=== PATIENT | female | born 1935 | race Two or more races ===

== ENCOUNTER 2019-07-04 06:42 | Day surgery (SDC) | payer OTHER ==
[~2019-07-04 06:42] MED LIST: ASPIR 8181 MG PO; LOSARTAN-HCTZ1 EAC1 PO; MAGNESIUM100 MG PO; NORVASC2.5 MG PO; VIT A,C,D-0.25 MG/1 PO; ZOCOR20 MG PO
== END 2019-07-04 17:10 | disposition home or self-care (01) ==
LOC: CIR.AMB 06:42
DX: D24.1 Benign neoplasm of right breast (principal)

== ENCOUNTER 2020-07-22 09:10 | Outpatient (CLI) | payer OTHER | END 2020-07-22 10:10 | disposition home or self-care (01) | LOC: NUCLEAR 09:10 | PROVIDERS: ATTEND Internal Medicine | DX: I73.9 Peripheral vascular disease, unspecified (principal) ==